=== PATIENT | male | born 1960 | race Caucasian/White ===

== ENCOUNTER 2018-11-17 09:23 | Emergency (ER) | payer BC ==
[2018-11-17] MEDS ORDERED: NS 0.9% 1000 ML** 1,000 ML IV ONE (09:53)
--- NOTE | 2018-11-17 09:54 | ED ---
Abdominal Pain/Male - HPI Summary HPI Summary: Patient is a 57-year-old male who presents emergency department for right upper quadrant abdominal pain 3 days. Patient notes pain has become more severe and constant in nature. Sharp in nature. Movement and walking makes symptoms worse. Nothing makes symptoms better. Associated symptoms of nausea without vomiting. Denies chest pain, shortness of breath, fever, urinary symptoms, vomiting or diarrhea. Patient has a past medical history of diverticulitis with peritonitis and bowel resection. Otherwise denies past medical history. Symptoms are moderate in severity. - History of Current Complaint Chief Complaint: EDAbdPain Stated Complaint: ABDOMINAL PAIN LOWER RIGHT SIDE Time Seen by Provider: 11/17/18 09:37 Hx Obtained From: Patient, Family/State Assessed Properties Director Pain Intensity: 5 - Allergies/Home Medications Allergies/Adverse Reactions: Allergies Allergy/AdvReac Type Severity Reaction Status Date / Time No Known Allergies Allergy Verified 11/17/18 09:26 PMH/Surg Hx/FS Hx/Imm Hx Previously Healthy: Yes Infectious Disease History: No Infectious Disease History: Denies: Traveled Outside the [place] in Last 30 Days - Family History Known Family History: Positive: Non-Contributory - Social History Occupation: Employed Full-time Lives: With Family Review of Systems Positive: Chills. Negative: Fever Cardiovascular: Negative Respiratory: Negative Positive: Abdominal Pain, Nausea. Negative: Vomiting Genitourinary: Negative Neurological: Negative All Other Systems Reviewed And Are Negative: Yes Physical Exam Triage Information Reviewed: Yes Vital Signs On Initial Exam: Initial Vitals Temp Pulse Resp BP Pulse Ox 98.0 F 76 14 156/99 98 11/17/18 09:25 11/17/18 09:25 11/17/18 09:25 11/17/18 09:25 11/17/18 09:25 Vital Signs Reviewed: Yes Appearance: Positive: Well-Appearing - Patient lying in bed in no acute distress. present. Skin: Positive: Warm, Dry Head/Face: Positive: Normal Head/Face Inspection Eyes: Positive: Normal, EOMI Neck: Positive: Supple Respiratory/Lung Sounds: Positive: Clear to Auscultation, Breath Sounds Present Cardiovascular: Positive: Normal, RRR Abdomen Description: Positive: Other: - Marked tenderness to the right lower quadrant with guarding. Mild diffuse abdominal tenderness. Musculoskeletal: Positive: Normal, Strength/ROM Intact Neurological: Positive: Normal, CN Intact II-III Psychiatric: Positive: Affect/Mood Appropriate Diagnostics - Vital Signs Vital Signs Temp Pulse Resp BP Pulse Ox 11/17/18 09:25 98.0 F 76 14 156/99 98 - Laboratory Result Diagrams: 11/17/18 10:28 11/17/18 10:28 Lab Statement: Any lab studies that have been ordered have been reviewed, and results considered in the medical decision making process. Abdominal Pain Male Course/Dx - Course Course Of Treatment: Pt. presenting with signficant RLQ pain. Afebrile with stable VS. Pt. declines pain medication. Given pain and surgical hx will obtain CT scan. Labs are unremarkable including normal WBC and CRP. CT read per radiology: IMPRESSION: #. The constellation of findings suggests Appendagitis epiploica at the ascending colon. Given presence of diverticula at the same level diverticulitis is also possible. #. The appendix is not visualized limiting assessment. Correlate for history of prior. appendectomy. Case discussed with kaveh Lindo, who briefly examined pt. He feels like has epiploic appendagitis. Will dc home to [facility] with surgery if pain persist. NSAIDS as directed. Will return to ER if sxs change or worsen. - Diagnoses Provider Diagnoses: Epiploic appendagitis Discharge - Sign-Out/Discharge Documenting (check all that apply): Patient Departure Patient Received Moderate/Deep Sedation with Procedure: No - Discharge Plan Condition: Good Disposition: HOME Referrals: Frankie Espinoza MD [Medical Doctor] - Additional Instructions: Follow up with Dr. Espinoza in 2-3 days if pain is not improving NSAIDS for pain as directed Return to ER for increased pain, fever, vomiting or if concerned - Billing Disposition and Condition Condition: GOOD Disposition: Home
[2018-11-17 10:33] LABS: ABS Eosinophils 0.1 10^3/ul (0-0.6); ABS Lymphocytes 1.3 10^3/ul (1.0-4.8); ABS Monocytes 0.4 10^3/ul (0-0.8); ABS Neutrophils 2.6 10^3/ul (1.5-7.7); Eosinophil % 2.8 %; Hematocrit 42 % (42-52); Hemoglobin 14.4 g/dL (14.0-18.0); Lymphocyte % 28.8 %; Mean Corpuscular HGB Conc 34 g/dL (31-36); Mean Corpuscular Hemoglobin 31 pg (27-31); Mean Corpuscular Volume 90 fL (80-94); Mean Platelet Volume 7.5 fL (7.4-10.4); Nucleated Red Blood Cells % 0.1; Platelet Count 170 10^3/uL (150-450); Red Blood Count 4.66 10^6 /uL (4.18-5.48); Red Cell Distribution Width 13 % (10-15); White Blood Count 4.5 10^3/uL (3.5-10.8)
[2018-11-17 10:50] LABS: Albumin 4.2 g/dL (3.2-5.2); Albumin/Globulin Ratio 1.4 (1-3); C Reactive Protein 4.6 mg/L (<8.01); Calcium 9.4 mg/dL (8.6-10.3); EGFR African American 99.7 (>60); EGFR Non-African American 82.4 (>60); Globulin 2.9 g/dL (2-4); Magnesium 2.2 mg/dL (1.9-2.7); Potassium 4.4 mmol/L (3.5-5.0); Total Bilirubin 0.6 mg/dL (0.2-1.0); Total Protein 7.1 g/dL (6.4-8.9)
[2018-11-17] MEDS ORDERED: Iohexol 300* (CONTRAST) 10 ML SDV IV ONE (11:47)
[2018-11-17 12:09] LABS: Urine Appearance Clear; Urine Bilirubin Negative (Negative); Urine Blood Negative (Negative); Urine Color Straw; Urine Glucose Negative (Negative); Urine Ketones Negative (Negative); Urine Nitrite Negative (Negative); Urine Protein Negative (Negative); Urine Specific Gravity 1.004 (1.010-1.030); Urine Urobilinogen Negative (Negative)
[2018-11-17 13:16] VITALS: BP 133/85
--- NOTE | 2018-11-17 20:58 | CONS ---
SURGICAL CONSULTATION REPORT: DATE OF CONSULT: 11/17/18 - EMERGENCY DEPT. REASON FOR CONSULT: Right lower quadrant abdominal pain. HISTORY OF PRESENT ILLNESS: Mr. Stbubs is a 57-year-old gentleman whose spouse is a physician. Three days ago, he began having right lower quadrant abdominal pain. This followed playing golf and also doing some strenuous cleaning (rugs). He reported taking some [id number] pain medication at that time. His pain persisted over the next couple of days and he finally presented to the emergency room on 11/17/18. At the time he presented, he was reporting provoking factors of walking and no palliating factors. He has had some nausea , no vomiting, no diarrhea. No dysuria, hematuria. He had no fevers, but did have some chills the night before. His laboratory work was normal, but CT scan demonstrated findings of epiploic appendagitis and there was no visualization of the appendix, so a surgical consultation was requested. PAST MEDICAL HISTORY: Significant for diverticulitis. Recurrent SBOs. PAST SURGICAL HISTORY: Significant for Fazal procedure and reversal of colostomy subsequently. The surgery was done 20 years ago. MEDICATIONS: None. ALLERGIES: None. SOCIAL HISTORY: He is . He is employed. He denies tobacco use. Occasionally drinks alcohol. PHYSICAL EXAM: He is 6 feet 3 inches, 200 pounds. In general, he is well developed, well nourished, lying in the emergency room stretcher, smiling, and in no acute distress. His abdomen is nondistended. There is a well-healed scar in the midline, lower abdomen and also transverse in the left lower quadrant. Abdomen is soft with mild tenderness in the right lower quadrant. No rebound or guarding. DIAGNOSTIC STUDIES/LAB DATA: WBC is 4.5 with no shift. Chemistry is notable for glucose elevated at 102. Otherwise, normal electrolytes, normal lactic acid. CRP is normal. Imaging studies include CT scan of the abdomen and pelvis with oral and IV contrast, which was reviewed by myself. Findings are consistent with appendagitis of the ascending colon. There is evidence of postoperative changes in the sigmoid colon. He has diverticula present in the right colon. Appendix was not seen. IMPRESSION: A 57-year-old male with a past medical history significant for perforated diverticulitis and history of prior small bowel obstructions, now presenting with right lower quadrant pain, evidence of right-sided diverticula with nonvisualization of the appendix and findings consistent with epiploic appendagitis. He does not appear to require any surgical intervention. PLAN/RECOMMENDATIONS: I discussed the findings with the patient and his , Dr. Gely Zavala. At present, I see no indication for him to be taken to the operating room. Although the appendix is not visualized on this study, given his normal laboratory work and the 3-day history, I have very low suspicion that this does represent acute appendicitis. However, should his symptoms worsen or should he develop fevers and chills, nausea and vomiting, then he should be reevaluated. I offered to follow up routinely in the office. However , the patient and his spouse are comfortable with following up as needed. [id number]/CPS #: [id number] MTDD
== END 2018-11-17 14:26 | disposition home or self-care (01) ==
LOC: ED 09:23
DX: K63.89 Other specified diseases of intestine (principal)
CPT/HCPCS: 36415; 74177; 80053; 81003; 83605; 83690; 83735; 85025; 86140; 96360; 96361; 99282; Q9967

== ENCOUNTER 2021-03-26 18:09 | Inpatient (IN) ==
[2021-03-26 19:14] LABS: ABS Eosinophils 0.1 10^3/ul (0-0.6); ABS Lymphocytes 1.1 10^3/ul (1.0-4.8); ABS Monocytes 0.4 10^3/ul (0-0.8); ABS Neutrophils 6.5 10^3/ul (1.5-7.7); Eosinophil % 1.4 %; Hematocrit 22 % (42-52); Hemoglobin 7.4 g/dL (14.0-18.0); Lymphocyte % 13.2 %; Mean Corpuscular HGB Conc 34 g/dL (31-36); Mean Corpuscular Hemoglobin 31 pg (27-31); Mean Corpuscular Volume 91 fL (80-94); Mean Platelet Volume 7.6 fL (7.4-10.4); Platelet Count 173 10^3/uL (150-450); Red Blood Count 2.39 10^6 /uL (4.18-5.48); Red Cell Distribution Width 13 % (10-15)
[2021-03-26] MEDS ORDERED: PEG 3000 GI LAVAGE 1 GALLON PO ONE ×2 (19:28→23:28)
[2021-03-26] MEDS ORDERED: Pantoprazole VIAL 40 MG VIAL IV ONE (19:30)
[2021-03-26 19:33] LABS: Albumin/Globulin Ratio 1.7 (1-3); C Reactive Protein 2.21 mg/L (<8.01); Calcium 7.3 mg/dL (8.6-10.3); Globulin 1.8 g/dL (2-4); Magnesium 1.7 mg/dL (1.9-2.7); Potassium 3.8 mmol/L (3.5-5.0); Total Bilirubin 0.3 mg/dL (0.2-1.0); Total Protein 4.8 g/dL (6.4-8.9); eGFR CKD-EPI 98.2 (>60)
[2021-03-26] MEDS ORDERED: Magnesium Sulfate 2 gm BAG 2 GM/50 ML BAG IVPB ONE (19:37)
[2021-03-26 21:01] LABS: ABS Lymphocytes 0.9 10^3/ul (1.0-4.8); ABS Monocytes 0.2 10^3/ul (0-0.8); ABS Neutrophils 7.2 10^3/ul (1.5-7.7); Eosinophil % 0.1 %; Hematocrit 22 % (42-52); Hemoglobin 7.6 g/dL (14.0-18.0); Lymphocyte % 10.6 %; Mean Corpuscular HGB Conc 35 g/dL (31-36); Mean Corpuscular Hemoglobin 31 pg (27-31); Mean Corpuscular Volume 90 fL (80-94); Mean Platelet Volume 7.5 fL (7.4-10.4); Platelet Count 178 10^3/uL (150-450); Red Blood Count 2.44 10^6 /uL (4.18-5.48); Red Cell Distribution Width 13 % (10-15); White Blood Count 8.3 10^3/uL (3.5-10.8)
[2021-03-27 02:16] LABS: ABS Eosinophils 0.1 10^3/ul (0-0.6); ABS Lymphocytes 2.5 10^3/ul (1.0-4.8); ABS Monocytes 0.5 10^3/ul (0-0.8); ABS Neutrophils 3.9 10^3/ul (1.5-7.7); Eosinophil % 1.4 %; Hematocrit 23 % (42-52); Hemoglobin 7.9 g/dL (14.0-18.0); Mean Corpuscular HGB Conc 34 g/dL (31-36); Mean Corpuscular Hemoglobin 31 pg (27-31); Mean Corpuscular Volume 90 fL (80-94); Mean Platelet Volume 7.5 fL (7.4-10.4); Platelet Count 212 10^3/uL (150-450); Red Blood Count 2.57 10^6 /uL (4.18-5.48); Red Cell Distribution Width 13 % (10-15)
[2021-03-27 09:04] LABS: ABS Eosinophils 0.1 10^3/ul (0-0.6); ABS Monocytes 0.2 10^3/ul (0-0.8); ABS Neutrophils 1.9 10^3/ul (1.5-7.7); Eosinophil % 2.2 %; Hematocrit 20 % (42-52); Hemoglobin 6.8 g/dL (14.0-18.0); Lymphocyte % 31.2 %; Mean Corpuscular HGB Conc 35 g/dL (31-36); Mean Corpuscular Hemoglobin 31 pg (27-31); Mean Corpuscular Volume 89 fL (80-94); Mean Platelet Volume 7.8 fL (7.4-10.4); Platelet Count 164 10^3/uL (150-450); Red Cell Distribution Width 13 % (10-15); White Blood Count 3.3 10^3/uL (3.5-10.8)
[2021-03-27 09:15] LABS: Albumin 3.2 g/dL (3.2-5.2); Albumin/Globulin Ratio 1.7 (1-3); Calcium 7.7 mg/dL (8.6-10.3); Globulin 1.9 g/dL (2-4); Magnesium 2.1 mg/dL (1.9-2.7); Potassium 3.8 mmol/L (3.5-5.0); Total Bilirubin 0.4 mg/dL (0.2-1.0); Total Protein 5.1 g/dL (6.4-8.9); eGFR CKD-EPI 97.8 (>60)
[2021-03-27] MEDS: Pantoprazole VIAL 40 MG VIAL IV SCH ×2 (09:26→22:13)
[2021-03-27 11:03] LABS: Corrected Retic Count 1.2 % (0.5-1.5); Hematocrit for Retic CNT 20 % (42-52); RBC Retic Count 2.17 10^6/uL (4.18-5.48)
[2021-03-27] MEDS ORDERED: fentaNYL 100 mcg/2 ml 50 MCG/ML VIAL ONE (12:01)
[2021-03-27] MEDS ORDERED: Midazolam 10 mg/10 ml VIAL 1 mg/ml 10 ml VIAL (10 mg) ONE (12:01)
[2021-03-27] MEDS ORDERED: Ondansetron 4 mg VIAL 2 MG/ML 2 ml VIAL IV PRN (15:46)
[2021-03-27 17:11] LABS: ABS Eosinophils 0.2 10^3/ul (0-0.6); ABS Lymphocytes 1.3 10^3/ul (1.0-4.8); ABS Monocytes 0.3 10^3/ul (0-0.8); ABS Neutrophils 1.6 10^3/ul (1.5-7.7); Eosinophil % 4.7 %; Hematocrit 20 % (42-52); Mean Corpuscular HGB Conc 35 g/dL (31-36); Mean Corpuscular Hemoglobin 31 pg (27-31); Mean Corpuscular Volume 89 fL (80-94); Mean Platelet Volume 7.3 fL (7.4-10.4); Platelet Count 147 10^3/uL (150-450); Red Blood Count 2.28 10^6 /uL (4.18-5.48); Red Cell Distribution Width 14 % (10-15); White Blood Count 3.3 10^3/uL (3.5-10.8)
[2021-03-27 22:01] LABS: ABS Eosinophils 0.2 10^3/ul (0-0.6); ABS Lymphocytes 1.5 10^3/ul (1.0-4.8); ABS Monocytes 0.3 10^3/ul (0-0.8); ABS Neutrophils 1.5 10^3/ul (1.5-7.7); Eosinophil % 5.7 %; Hematocrit 22 % (42-52); Hemoglobin 7.7 g/dL (14.0-18.0); Lymphocyte % 41.9 %; Mean Corpuscular HGB Conc 34 g/dL (31-36); Mean Corpuscular Hemoglobin 31 pg (27-31); Mean Corpuscular Volume 90 fL (80-94); Mean Platelet Volume 7.6 fL (7.4-10.4); Platelet Count 151 10^3/uL (150-450); Red Cell Distribution Width 14 % (10-15); White Blood Count 3.5 10^3/uL (3.5-10.8)
[2021-03-27] MEDS: NS 0.9% 1000 ml BAG 1,000 ML IV SCH (22:09)
[2021-03-28 02:03] LABS: Hematocrit 22 % (42-52); Hemoglobin 7.4 g/dL (14.0-18.0)
[2021-03-28 04:39] LABS: ABS Eosinophils 0.2 10^3/ul (0-0.6); ABS Lymphocytes 1.3 10^3/ul (1.0-4.8); ABS Monocytes 0.3 10^3/ul (0-0.8); ABS Neutrophils 1.8 10^3/ul (1.5-7.7); Eosinophil % 5.4 %; Hematocrit 22 % (42-52); Hemoglobin 7.7 g/dL (14.0-18.0); Lymphocyte % 36.7 %; Mean Corpuscular HGB Conc 34 g/dL (31-36); Mean Corpuscular Hemoglobin 31 pg (27-31); Mean Corpuscular Volume 89 fL (80-94); Mean Platelet Volume 7.6 fL (7.4-10.4); Nucleated Red Blood Cells % 0.1; Platelet Count 139 10^3/uL (150-450); Red Blood Count 2.51 10^6 /uL (4.18-5.48); Red Cell Distribution Width 14 % (10-15); White Blood Count 3.6 10^3/uL (3.5-10.8)
[2021-03-28 04:52] LABS: Calcium 7.7 mg/dL (8.6-10.3); Potassium 3.8 mmol/L (3.5-5.0); eGFR CKD-EPI 95.9 (>60)
[2021-03-28 05:42] LABS: TSH Ultra Thyroid Stim Horm 4.95 mcIU/mL (0.34-5.60)
[2021-03-28] MEDS: Pantoprazole VIAL 40 MG VIAL IV SCH ×2 (08:59→21:56)
[2021-03-28] MEDS: NS 0.9% 1000 ml BAG 1,000 ML IV SCH (09:00)
[2021-03-28 12:58] LABS: ABS Eosinophils 0.1 10^3/ul (0-0.6); ABS Lymphocytes 1.4 10^3/ul (1.0-4.8); ABS Monocytes 0.3 10^3/ul (0-0.8); ABS Neutrophils 2.3 10^3/ul (1.5-7.7); Eosinophil % 3.4 %; Hematocrit 26 % (42-52); Hemoglobin 8.9 g/dL (14.0-18.0); Lymphocyte % 33.9 %; Mean Corpuscular HGB Conc 34 g/dL (31-36); Mean Corpuscular Hemoglobin 31 pg (27-31); Mean Corpuscular Volume 90 fL (80-94); Mean Platelet Volume 7.6 fL (7.4-10.4); Platelet Count 192 10^3/uL (150-450); Red Blood Count 2.91 10^6 /uL (4.18-5.48); Red Cell Distribution Width 14 % (10-15); White Blood Count 4.2 10^3/uL (3.5-10.8)
[2021-03-28] MEDS ORDERED: Iron Sucrose 200 MG in NS 0.9% 100 ml BAG 100 ML IVPB ONE (14:37)
[2021-03-28 21:08] LABS: ABS Eosinophils 0.2 10^3/ul (0-0.6); ABS Lymphocytes 1.4 10^3/ul (1.0-4.8); ABS Monocytes 0.4 10^3/ul (0-0.8); ABS Neutrophils 1.5 10^3/ul (1.5-7.7); Eosinophil % 5.1 %; Hematocrit 23 % (42-52); Hemoglobin 7.7 g/dL (14.0-18.0); Lymphocyte % 41.3 %; Mean Corpuscular HGB Conc 34 g/dL (31-36); Mean Corpuscular Hemoglobin 31 pg (27-31); Mean Corpuscular Volume 90 fL (80-94); Mean Platelet Volume 7.2 fL (7.4-10.4); Platelet Count 152 10^3/uL (150-450); Red Blood Count 2.52 10^6 /uL (4.18-5.48); Red Cell Distribution Width 14 % (10-15); White Blood Count 3.4 10^3/uL (3.5-10.8)
[2021-03-29 06:33] LABS: ABS Eosinophils 0.2 10^3/ul (0-0.6); ABS Lymphocytes 1.4 10^3/ul (1.0-4.8); ABS Monocytes 0.3 10^3/ul (0-0.8); ABS Neutrophils 1.3 10^3/ul (1.5-7.7); Hematocrit 21 % (42-52); Hemoglobin 7.4 g/dL (14.0-18.0); Lymphocyte % 44.7 %; Mean Corpuscular HGB Conc 35 g/dL (31-36); Mean Corpuscular Hemoglobin 31 pg (27-31); Mean Corpuscular Volume 89 fL (80-94); Mean Platelet Volume 7.7 fL (7.4-10.4); Platelet Count 140 10^3/uL (150-450); Red Blood Count 2.39 10^6 /uL (4.18-5.48); Red Cell Distribution Width 14 % (10-15); White Blood Count 3.2 10^3/uL (3.5-10.8)
[2021-03-29 06:51] LABS: Calcium 7.8 mg/dL (8.6-10.3); Potassium 3.9 mmol/L (3.5-5.0); eGFR CKD-EPI 97.5 (>60)
[2021-03-29] MEDS ORDERED: Cholecalciferol (VIT D3) 50,000 UNIT CAP (NF) PO ONE (07:02)
[2021-03-29] MEDS: Pantoprazole VIAL 40 MG VIAL IV SCH ×2 (07:56→22:13)
[2021-03-29 13:46] LABS: Hematocrit 25 % (42-52); Hemoglobin 8.4 g/dL (14.0-18.0)
[2021-03-29 14:10] LABS: Ferritin 106.7 ng/mL (24-336)
[2021-03-29 17:09] LABS: % Iron Saturation 25 % (14 - 50); Total Iron Binding Capacity 182 mcg/dL (250 - 400); Transferrin 154 mg/dL (200 - 360)
[2021-03-29 17:29] LABS: Ferritin 75.1 ng/mL (24-336)
[2021-03-29 18:53] LABS: ABS Eosinophils 0.1 10^3/ul (0-0.6); ABS Lymphocytes 1.4 10^3/ul (1.0-4.8); ABS Monocytes 0.3 10^3/ul (0-0.8); ABS Neutrophils 1.5 10^3/ul (1.5-7.7); Eosinophil % 3.3 %; Hematocrit 26 % (42-52); Lymphocyte % 41.7 %; Mean Corpuscular HGB Conc 35 g/dL (31-36); Mean Corpuscular Hemoglobin 32 pg (27-31); Mean Corpuscular Volume 90 fL (80-94); Mean Platelet Volume 7.2 fL (7.4-10.4); Platelet Count 167 10^3/uL (150-450); Red Blood Count 2.83 10^6 /uL (4.18-5.48); Red Cell Distribution Width 13 % (10-15); White Blood Count 3.5 10^3/uL (3.5-10.8)
[2021-03-30 05:24] LABS: ABS Eosinophils 0.1 10^3/ul (0-0.6); ABS Lymphocytes 1.2 10^3/ul (1.0-4.8); ABS Monocytes 0.2 10^3/ul (0-0.8); ABS Neutrophils 1.2 10^3/ul (1.5-7.7); Eosinophil % 4.4 %; Hematocrit 25 % (42-52); Hemoglobin 8.6 g/dL (14.0-18.0); Mean Corpuscular HGB Conc 35 g/dL (31-36); Mean Corpuscular Hemoglobin 31 pg (27-31); Mean Corpuscular Volume 90 fL (80-94); Mean Platelet Volume 7.4 fL (7.4-10.4); Platelet Count 152 10^3/uL (150-450); Red Blood Count 2.76 10^6 /uL (4.18-5.48); Red Cell Distribution Width 14 % (10-15); White Blood Count 2.8 10^3/uL (3.5-10.8)
[2021-03-30 05:42] LABS: Calcium 8.2 mg/dL (8.6-10.3); Potassium 3.8 mmol/L (3.5-5.0); eGFR CKD-EPI 97.5 (>60)
[2021-03-30] MEDS: Pantoprazole VIAL 40 MG VIAL IV SCH (08:51)
[2021-03-30 08:53] LABS: Corrected Retic Count 1.4 % (0.5-1.5); Hematocrit for Retic CNT 25 % (42-52); Immature Retic Fraction 0.56; RBC Retic Count 2.79 10^6/uL (4.18-5.48)
[2021-03-30 12:05] LABS: ABS Eosinophils 0.1 10^3/ul (0-0.6); ABS Lymphocytes 1.5 10^3/ul (1.0-4.8); ABS Monocytes 0.3 10^3/ul (0-0.8); ABS Neutrophils 2.6 10^3/ul (1.5-7.7); Eosinophil % 2.2 %; Hematocrit 29 % (42-52); Hemoglobin 10.2 g/dL (14.0-18.0); Lymphocyte % 33.1 %; Mean Corpuscular HGB Conc 35 g/dL (31-36); Mean Corpuscular Hemoglobin 31 pg (27-31); Mean Corpuscular Volume 91 fL (80-94); Mean Platelet Volume 7.3 fL (7.4-10.4); Platelet Count 204 10^3/uL (150-450); Red Blood Count 3.24 10^6 /uL (4.18-5.48); Red Cell Distribution Width 14 % (10-15); White Blood Count 4.5 10^3/uL (3.5-10.8)
[2021-03-30 13:43] LABS: % Iron Saturation 71 % (14 - 50); Total Iron Binding Capacity 179 mcg/dL (250 - 400); Transferrin 152 mg/dL (200 - 360)
[2021-03-30 15:37] VITALS: BP 120/77
[2021-03-30 16:17] LABS: Hematocrit 28 % (42-52); Hemoglobin 9.5 g/dL (14.0-18.0)
== END 2021-03-30 17:30 | disposition home or self-care (01) | DRG 244 ==
LOC: ED 18:09 → EDHOLD 18:09 → SUATTDRO 22:11 → SSU 23:17 → SUATTDRO 03-27 16:00
PROVIDERS: ADMIT Student in an Organized Health Care Education/Training Program; ATTEND Hospitalist

== ENCOUNTER 2024-01-23 08:04 | Inpatient (IN) ==
[2024-01-23] MEDS: Ondansetron 4 mg VIAL 2 MG/ML 2 ml VIAL IV ONE (09:12)
[2024-01-23] MEDS: Lactated Ringers 1000 ml BAG 1,000 ML IV ONE ×2 (09:12→12:50)
[2024-01-23 09:23] LABS: ABS Lymphocytes 0.8 10^3/uL (1.0-4.8); ABS Monocytes 0.4 10^3/uL (0.0-1.1); ABS Neutrophils 11.8 10^3/uL (1.5-7.6); ABS Nucleated RBC 0.04 10^3/ul; Eosinophil % 0.1 %; Hematocrit 46.4 % (38-53); Hemoglobin 15.9 g/dL (13.2-16.3); Lymphocyte % 6.5 %; Mean Corpuscular Hemoglobin 31.1 pg (27-33); Mean Corpuscular Hgb Conc 34.3 g/dL (31-36); Mean Corpuscular Volume 90.8 fL (80-97); Mean Platelet Volume 7.8 fL (7.5-11.2); Nucleated Red Blood Cells % 0.3 %/100WBC (0.0-0.8); Platelet Count 247 10^3/uL (150-450); Red Blood Count 5.11 10^6/uL (4.06-5.63); Red Cell Distribution Width 13.3 % (12-17); White Blood Count 13.1 10^3/uL (3.6-10.2)
[2024-01-23 10:17] LABS: ALT 20 U/L (7-52); Albumin 4.7 g/dL (3.2-5.2); Albumin/Globulin Ratio 1.6 (1-3); Alkaline Phosphatase 72 U/L (35-149); Anion Gap 13 mmol/L (2-16); Blood Urea Nitrogen 16 mg/dL (6-24); C Reactive Protein 1.33 mg/L (<8.01); CO2 Carbon Dioxide 25 mmol/L (22-32); Calcium 10.4 mg/dL (8.6-10.3); Chloride 98 mmol/L (101-111); Creatinine, Serum 1.03 mg/dL (0.67-1.17); Globulin 2.9 g/dL (2-4); Glucose 128 mg/dL (70-100); Lipase 19 U/L (11.0-82.0); Sodium 136 mmol/L (135-145); Total Bilirubin 0.7 mg/dL (0.2-1.0); Total Protein 7.6 g/dL (6.4-8.9); eGFR CKD-EPI 81.1 (>60)
[2024-01-23] MEDS: Iohexol 300 (CONTRAST) 10 ML SDV IV ONE (11:27)
[2024-01-23] MEDS: Acetaminophen IV 1 GM/100ML 1,000 MG/100 ML BAG IV ONE (12:48)
[2024-01-23] MEDS: Diatrizoate Meg/Sod(CONTRAST) 30 ML ORAL.SOLN PO ONE (14:12)
[2024-01-23] MEDS: Ondansetron 4 mg VIAL 2 MG/ML 2 ml VIAL IV PRN (15:41)
[2024-01-23] MEDS: Lactated Ringers 1000 ml BAG 1,000 ML IV SCH (15:41)
[2024-01-23] MEDS ORDERED: Metoclopramide 5 MG/ML VIAL (10 mg) IV PRN (16:22)
[2024-01-23] MEDS: Acetaminophen IV 1 GM/100ML 1,000 MG/100 ML BAG IV PRN (19:51)
[2024-01-23 21:07] LABS: Potassium Redraw 4.4 mmol/L (3.5-5.0)
[2024-01-24] MEDS: Lactated Ringers 1000 ml BAG 1,000 ML IV ONE ×3 (02:06→11:06)
[2024-01-24 07:53] LABS: ABS Lymphocytes 1.9 10^3/uL (1.0-4.8); ABS Neutrophils 7.8 10^3/uL (1.5-7.6); Eosinophil % 0.4 %; Hematocrit 42.9 % (38-53); Hemoglobin 14.9 g/dL (13.2-16.3); Lymphocyte % 18.1 %; Mean Corpuscular Hemoglobin 31.4 pg (27-33); Mean Corpuscular Hgb Conc 34.6 g/dL (31-36); Mean Corpuscular Volume 90.8 fL (80-97); Mean Platelet Volume 7.7 fL (7.5-11.2); Platelet Count 244 10^3/uL (150-450); Red Blood Count 4.73 10^6/uL (4.06-5.63); White Blood Count 10.8 10^3/uL (3.6-10.2)
[2024-01-24 08:38] LABS: Calcium 9.8 mg/dL (8.6-10.3); Creatinine, Serum 1.03 mg/dL (0.67-1.17); Magnesium 1.9 mg/dL (1.9-2.7); Potassium 4.5 mmol/L (3.5-5.0); eGFR CKD-EPI 81.1 (>60)
[2024-01-24] MEDS: Lactated Ringers 1000 ml BAG 1,000 ML IV SCH (12:09)
[2024-01-25 05:44] LABS: ABS Eosinophils 0.1 10^3/uL (0.0-0.5); ABS Lymphocytes 1.6 10^3/uL (1.0-4.8); ABS Monocytes 0.8 10^3/uL (0.0-1.1); ABS Neutrophils 6.2 10^3/uL (1.5-7.6); Eosinophil % 0.6 %; Hematocrit 37.9 % (38-53); Hemoglobin 12.9 g/dL (13.2-16.3); Lymphocyte % 18.7 %; Mean Corpuscular Hgb Conc 33.9 g/dL (31-36); Mean Corpuscular Volume 91.2 fL (80-97); Mean Platelet Volume 7.9 fL (7.5-11.2); Platelet Count 197 10^3/uL (150-450); Red Blood Count 4.16 10^6/uL (4.06-5.63); White Blood Count 8.7 10^3/uL (3.6-10.2)
[2024-01-25 07:21] LABS: Creatinine, Serum 0.92 mg/dL (0.67-1.17); Magnesium 1.8 mg/dL (1.9-2.7); eGFR CKD-EPI 92.9 (>60)
[2024-01-25] MEDS: Magnesium Sulfate 2 gm BAG 2 GM/50 ML BAG IVPB ONE (08:37)
[2024-01-25] MEDS: Phenol 1.4% Throat Spray BTL MT PRN (18:02)
[2024-01-26 05:36] LABS: ABS Eosinophils 0.1 10^3/uL (0.0-0.5); ABS Lymphocytes 1.5 10^3/uL (1.0-4.8); ABS Monocytes 0.7 10^3/uL (0.0-1.1); ABS Neutrophils 5.3 10^3/uL (1.5-7.6); Eosinophil % 1.8 %; Hematocrit 34.6 % (38-53); Lymphocyte % 19.4 %; Mean Corpuscular Hemoglobin 31.7 pg (27-33); Mean Corpuscular Hgb Conc 34.8 g/dL (31-36); Mean Corpuscular Volume 91.1 fL (80-97); Mean Platelet Volume 7.5 fL (7.5-11.2); Platelet Count 166 10^3/uL (150-450); Red Cell Distribution Width 13.1 % (12-17); White Blood Count 7.6 10^3/uL (3.6-10.2)
[2024-01-26 06:14] LABS: Creatinine, Serum 0.74 mg/dL (0.67-1.17); Magnesium 1.9 mg/dL (1.9-2.7); Potassium 3.9 mmol/L (3.5-5.0); eGFR CKD-EPI 101.2 (>60)
[2024-01-26] MEDS: Pantoprazole VIAL 40 MG VIAL IV SCH (12:27)
[2024-01-26] MEDS: Diatrizoate Meg/Sod(CONTRAST) 30 ML ORAL.SOLN PO ONE (13:18)
[2024-01-26] MEDS ORDERED: Lorazepam PYXIS KEY PRN (13:43)
[2024-01-26] MEDS: LORazepam 2 mg VIAL 1 ml IV PUSH PRN (22:33)
[2024-01-27 10:15] LABS: Calcium 8.4 mg/dL (8.6-10.3); Creatinine, Serum 0.75 mg/dL (0.67-1.17); Potassium 3.7 mmol/L (3.5-5.0); eGFR CKD-EPI 100.8 (>60)
[2024-01-27] MEDS ORDERED: ceFOXitin 2 GM IVPREMIX 2 GM/50 ML BAG ONE (10:32)
[2024-01-27] MEDS: KCL 10 MEQ/50 ML IVPREMIX 10 MEQ/50 ML BAG IV SCH (11:41)
[2024-01-27] MEDS ORDERED: Lidocaine 2% PF 5 ML VIAL ONE ×2 (13:38→13:41)
[2024-01-27] MEDS ORDERED: Propofol 10 MG/ML 20 ML BTL ONE (13:38)
[2024-01-27] MEDS ORDERED: fentaNYL 100 mcg/2 ml 50 MCG/ML VIAL ONE ×2 (13:38→19:40)
[2024-01-27] MEDS ORDERED: Midazolam 2 mg/2 ml VIAL 1 mg/ml 2 ml VIAL (2 mg) ONE (13:38)
[2024-01-27] MEDS ORDERED: Rocuronium 50 mg VIAL 10 mg/ml 5 ml VIAL (50 mg) ONE ×3 (13:38→16:26)
[2024-01-27] MEDS ORDERED: Sevoflurane BOTTLE ONE (13:40)
[2024-01-27] MEDS ORDERED: Bupivacaine 0.25% w/EPI 10 ML SDV ONE (13:44)
[2024-01-27] MEDS ORDERED: Dexamethasone IV 4 MG/ML VIAL 1 ml VIAL ONE (15:26)
[2024-01-27] MEDS ORDERED: Ondansetron 4 mg VIAL 2 MG/ML 2 ml VIAL ONE (15:26)
[2024-01-27] MEDS ORDERED: HYDROmorphone 0.5 MG/0.5 ML SYRINGE ONE (15:27)
[2024-01-27] MEDS ORDERED: Labetalol IV 5 MG/ML 20 ml VIAL ONE ×2 (16:12→19:39)
[2024-01-27] MEDS ORDERED: hydrALAZINE 20 mg/ml 1 ML Vial IV ONE (16:13)
[2024-01-27] MEDS ORDERED: Acetaminophen IV 1 GM/100ML 1,000 MG/100 ML BAG IV ONE (16:34)
[2024-01-27] MEDS ORDERED: Naloxone 0.4 mg VIAL 0.4 mg/ml 1 ml VIAL IV PRN (19:35)
[2024-01-27] MEDS ORDERED: Metoclopramide 5 MG/ML VIAL (10 mg) IV PRN (19:35)
[2024-01-27] MEDS ORDERED: Ondansetron 4 mg VIAL 2 MG/ML 2 ml VIAL IV PRN (19:35)
[2024-01-27] MEDS: fentaNYL 100 mcg/2 ml 50 MCG/ML VIAL IV PRN (19:43)
[2024-01-27] MEDS: Labetalol IV 5 MG/ML 20 ml VIAL IV PUSH ONE (19:46)
[2024-01-27] MEDS ORDERED: NS 0.45% 1000 ml BAG 1,000 ML IV SCH (20:00)
[2024-01-27] MEDS ORDERED: HYDROmorphone 1 MG/1 ML SYRINGE ONE (20:35)
[2024-01-27] MEDS: HYDROmorphone 0.5 MG/0.5 ML SYRINGE IV SLOW PU PRN (20:37)
[2024-01-27] MEDS: Buffered Lidocaine 1% SYRIN 1 ml INTRADERM ONE (21:54)
[2024-01-27] MEDS: Scopolamine 1 mg/72hr PATCH TRANSDERM ONE (21:55)
[2024-01-27] MEDS: Lactated Ringers 1000 ml BAG 1,000 ML IV SCH ×2 (22:00→22:01)
[2024-01-27] MEDS: Acetaminophen IV 1 GM/100ML 1,000 MG/100 ML BAG IV ONE (22:07)
[2024-01-28 05:49] LABS: ABS Lymphocytes 0.7 10^3/uL (1.0-4.8); ABS Monocytes 0.8 10^3/uL (0.0-1.1); ABS Nucleated RBC 0.01 10^3/ul; Hematocrit 38.9 % (38-53); Hemoglobin 13.5 g/dL (13.2-16.3); Lymphocyte % 8.6 %; Mean Corpuscular Hemoglobin 31.4 pg (27-33); Mean Corpuscular Hgb Conc 34.8 g/dL (31-36); Mean Corpuscular Volume 90.4 fL (80-97); Mean Platelet Volume 8.1 fL (7.5-11.2); Nucleated Red Blood Cells % 0.1 %/100WBC (0.0-0.8); Platelet Count 196 10^3/uL (150-450); Red Blood Count 4.31 10^6/uL (4.06-5.63); Red Cell Distribution Width 12.8 % (12-17); White Blood Count 8.6 10^3/uL (3.6-10.2)
[2024-01-28 06:20] LABS: Calcium 7.5 mg/dL (8.6-10.3); Creatinine, Serum 0.78 mg/dL (0.67-1.17); Potassium 4.1 mmol/L (3.5-5.0); eGFR CKD-EPI 99.6 (>60)
[2024-01-28] MEDS: Lactated Ringers 1000 ml BAG 1,000 ML IV SCH (09:56)
[2024-01-28] MEDS: NS 0.9% 1000 ml BAG 1,000 ML IV ONE (15:17)
[2024-01-28] MEDS: Lidocaine 2% JELLY 6 ML Topical TOPICAL ONE (15:28)
[2024-01-28] MEDS: Enoxaparin 40 MG/0.4 ML SYR SUBCUT SCH (20:19)
[2024-01-29] MEDS: D5W 1/2 NS 1000 ml BAG 1,000 ML IV SCH (11:16)
[2024-01-30 07:10] LABS: ABS Eosinophils 0.2 10^3/uL (0.0-0.5); ABS Lymphocytes 1.3 10^3/uL (1.0-4.8); ABS Monocytes 0.6 10^3/uL (0.0-1.1); ABS Neutrophils 4.9 10^3/uL (1.5-7.6); Eosinophil % 2.3 %; Hematocrit 31.6 % (38-53); Mean Corpuscular Hemoglobin 31.9 pg (27-33); Mean Corpuscular Hgb Conc 34.9 g/dL (31-36); Mean Corpuscular Volume 91.3 fL (80-97); Mean Platelet Volume 8.2 fL (7.5-11.2); Platelet Count 179 10^3/uL (150-450); Red Blood Count 3.46 10^6/uL (4.06-5.63)
[2024-01-30 07:22] LABS: Calcium 7.4 mg/dL (8.6-10.3); Creatinine, Serum 0.65 mg/dL (0.67-1.17); Magnesium 1.9 mg/dL (1.9-2.7); Potassium 3.8 mmol/L (3.5-5.0); eGFR CKD-EPI 105.2 (>60)
[2024-01-30] MEDS: Acetaminophen IV 1 GM/100ML 1,000 MG/100 ML BAG IV SCH ×2 (10:22→12:23)
[2024-01-30] MEDS: LORazepam 2 mg VIAL 1 ml IV PUSH PRN (22:05)
[2024-01-31] MEDS ORDERED: LIDOCAINE 4% TOPICAL PRN (11:51)
[2024-02-01] MEDS ORDERED: LORazepam 2 mg VIAL 1 ml IV PUSH PRN (02:28)
[2024-02-01 08:57] LABS: Calcium 7.7 mg/dL (8.6-10.3); Creatinine, Serum 0.58 mg/dL (0.67-1.17); Potassium 3.2 mmol/L (3.5-5.0); eGFR CKD-EPI 108.9 (>60)
[2024-02-01 08:59] LABS: Albumin 2.7 g/dL (3.2-5.2); Albumin/Globulin Ratio 1.4 (1-3); Calcium 7.5 mg/dL (8.6-10.3); Creatinine, Serum 0.58 mg/dL (0.67-1.17); Globulin 1.9 g/dL (2-4); Magnesium 1.8 mg/dL (1.9-2.7); Phosphorus 3.2 mg/dL (2.5-5.0); Potassium 3.1 mmol/L (3.5-5.0); Total Bilirubin 0.6 mg/dL (0.2-1.0); Total Protein 4.6 g/dL (6.4-8.9); eGFR CKD-EPI 108.9 (>60)
[2024-02-01] MEDS: D5W 1/2 NS 1000 ml BAG 1,000 ML IV SCH (10:24)
[2024-02-01] MEDS: Magnesium Sulfate 2 gm BAG 2 GM/50 ML BAG IVPB ONE (10:53)
[2024-02-01] MEDS: KCL 20 MEQ/100 ML IVPREMIX 20 MEQ/100 ML BAG IV SCH (13:21)
[2024-02-01] MEDS: LORazepam 2 mg VIAL 1 ml IV PUSH PRN (21:08)
[2024-02-03] MEDS: Metoclopramide 5 MG/ML VIAL (10 mg) IV PRN (16:54)
[2024-02-03] MEDS: Metoclopramide 5 MG/ML VIAL (10 mg) ONE (17:07)
[2024-02-04] MEDS: Acetaminophen IV 1 GM/100ML 1,000 MG/100 ML BAG IV SCH (04:20)
[2024-02-04 07:05] LABS: Calcium 7.8 mg/dL (8.6-10.3); Creatinine, Serum 0.68 mg/dL (0.67-1.17); Potassium 3.4 mmol/L (3.5-5.0); eGFR CKD-EPI 103.8 (>60)
[2024-02-04] MEDS: KCL 20 MEQ/100 ML IVPREMIX 20 MEQ/100 ML BAG IV SCH (11:50)
[2024-02-04] MEDS: Iohexol 300 (CONTRAST) 10 ML SDV IV ONE (14:14)
[2024-02-04] MEDS: Acetaminophen IV 1 GM/100ML 1,000 MG/100 ML BAG IV PRN (14:17)
[2024-02-04] MEDS: Iohexol 350 (CONTRAST) 500 ML MDV IV ONE (14:53)
[2024-02-04] MEDS: D5W 1/2 NS 1000 ml BAG 1,000 ML IV SCH ×2 (17:42→20:28)
[2024-02-04] MEDS: PPN (PERIPHERAL) 24 HR with D10W 1000 ml BAG 1,000 ML, Amino Acid Infusion 10% 850 ML, ... IV SCH (17:43)
[2024-02-05 06:37] LABS: ABS Eosinophils 0.1 10^3/uL (0.0-0.5); ABS Lymphocytes 1.2 10^3/uL (1.0-4.8); ABS Monocytes 0.5 10^3/uL (0.0-1.1); ABS Neutrophils 3.6 10^3/uL (1.5-7.6); Eosinophil % 2.6 %; Hematocrit 29.5 % (38-53); Hemoglobin 10.4 g/dL (13.2-16.3); Lymphocyte % 21.7 %; Mean Corpuscular Hemoglobin 31.9 pg (27-33); Mean Corpuscular Hgb Conc 35.2 g/dL (31-36); Mean Corpuscular Volume 90.6 fL (80-97); Mean Platelet Volume 7.5 fL (7.5-11.2); Platelet Count 314 10^3/uL (150-450); Red Blood Count 3.25 10^6/uL (4.06-5.63); Red Cell Distribution Width 13.1 % (12-17); White Blood Count 5.4 10^3/uL (3.6-10.2)
[2024-02-05 06:54] LABS: Albumin 2.9 g/dL (3.2-5.2); Albumin/Globulin Ratio 1.3 (1-3); Creatinine, Serum 0.67 mg/dL (0.67-1.17); Globulin 2.2 g/dL (2-4); Magnesium 1.8 mg/dL (1.9-2.7); Phosphorus 3.3 mg/dL (2.5-5.0); Potassium 3.5 mmol/L (3.5-5.0); Total Bilirubin 0.5 mg/dL (0.2-1.0); Total Protein 5.1 g/dL (6.4-8.9); eGFR CKD-EPI 104.3 (>60)
[2024-02-05] MEDS: TPN 24 HR with Dextrose 50% Water 500 ML, Amino Acid Infusion 10% 1,000 ML, Lipid Emuls... CENT\\PICC SCH (11:42)
[2024-02-05] MEDS: D5W 1/2 NS KCl 20 meq 1000 ml 1,000 ML IV SCH ×2 (15:41→15:44)
[2024-02-06 05:53] LABS: Albumin 3.1 g/dL (3.2-5.2); Albumin/Globulin Ratio 1.3 (1-3); Calcium 8.2 mg/dL (8.6-10.3); Creatinine, Serum 0.67 mg/dL (0.67-1.17); Globulin 2.4 g/dL (2-4); Magnesium 1.9 mg/dL (1.9-2.7); Phosphorus 3.7 mg/dL (2.5-5.0); Potassium 3.6 mmol/L (3.5-5.0); Total Bilirubin 0.5 mg/dL (0.2-1.0); Total Protein 5.5 g/dL (6.4-8.9); eGFR CKD-EPI 104.3 (>60)
[2024-02-06] MEDS: Prochlorperazine 5 mg/ml 2 ml VIAL (10 mg) IV PRN (10:52)
[2024-02-06] MEDS ORDERED: Zosyn per Pharmacy NOTE FOLLOW UP SCH (17:00)
[2024-02-06] MEDS: Piperacillin/Tazobac 3.375 BAG 3.375 GM/100 ML BAG IV ONE (18:10)
[2024-02-06] MEDS: ZOSYN 3.375 GM Q8H per EXTENDED INFUSION IV SCH (21:57)
[2024-02-07 05:55] LABS: ABS Eosinophils 0.1 10^3/uL (0.0-0.5); ABS Lymphocytes 1.3 10^3/uL (1.0-4.8); ABS Monocytes 0.5 10^3/uL (0.0-1.1); ABS Neutrophils 4.5 10^3/uL (1.5-7.6); ABS Nucleated RBC 0.01 10^3/ul; Eosinophil % 1.8 %; Hematocrit 30.5 % (38-53); Hemoglobin 10.5 g/dL (13.2-16.3); Lymphocyte % 20.1 %; Mean Corpuscular Hemoglobin 31.1 pg (27-33); Mean Corpuscular Hgb Conc 34.5 g/dL (31-36); Mean Platelet Volume 7.5 fL (7.5-11.2); Nucleated Red Blood Cells % 0.1 %/100WBC (0.0-0.8); Platelet Count 413 10^3/uL (150-450); Red Blood Count 3.39 10^6/uL (4.06-5.63); Red Cell Distribution Width 13.1 % (12-17); White Blood Count 6.5 10^3/uL (3.6-10.2)
[2024-02-07 06:23] LABS: Albumin/Globulin Ratio 1.3 (1-3); Calcium 8.3 mg/dL (8.6-10.3); Creatinine, Serum 0.73 mg/dL (0.67-1.17); Globulin 2.3 g/dL (2-4); Phosphorus 3.8 mg/dL (2.5-5.0); Potassium 3.7 mmol/L (3.5-5.0); Total Bilirubin 0.4 mg/dL (0.2-1.0); Total Protein 5.3 g/dL (6.4-8.9); eGFR CKD-EPI 101.6 (>60)
[2024-02-07] MEDS: TPN 24 HR with Sodium Chloride CONC. 4 MEQ/ML 100 MEQ, Potassium Chloride TPN 50 MEQ, C... CENT\\PICC SCH (17:56)
[2024-02-08 08:03] LABS: Albumin/Globulin Ratio 1.3 (1-3); Calcium 8.2 mg/dL (8.6-10.3); Creatinine, Serum 0.68 mg/dL (0.67-1.17); Globulin 2.4 g/dL (2-4); Magnesium 1.9 mg/dL (1.9-2.7); Phosphorus 3.7 mg/dL (2.5-5.0); Potassium 3.9 mmol/L (3.5-5.0); Total Bilirubin 0.5 mg/dL (0.2-1.0); Total Protein 5.4 g/dL (6.4-8.9); eGFR CKD-EPI 103.8 (>60)
[2024-02-08] MEDS: Metoprolol Tartrate 5 mg VIAL 5 ml VIAL (1 mg/ml) IV SCH (13:34)
[2024-02-10 06:58] LABS: ABS Eosinophils 0.1 10^3/uL (0.0-0.5); ABS Lymphocytes 1.2 10^3/uL (1.0-4.8); ABS Monocytes 0.6 10^3/uL (0.0-1.1); ABS Neutrophils 5.6 10^3/uL (1.5-7.6); Eosinophil % 1.1 %; Hematocrit 28.9 % (38-53); Hemoglobin 10.2 g/dL (13.2-16.3); Lymphocyte % 15.3 %; Mean Corpuscular Hemoglobin 32.1 pg (27-33); Mean Corpuscular Hgb Conc 35.5 g/dL (31-36); Mean Corpuscular Volume 90.5 fL (80-97); Mean Platelet Volume 7.3 fL (7.5-11.2); Platelet Count 426 10^3/uL (150-450); Red Blood Count 3.19 10^6/uL (4.06-5.63); Red Cell Distribution Width 13.4 % (12-17); White Blood Count 7.5 10^3/uL (3.6-10.2)
[2024-02-10 07:48] LABS: Calcium 8.1 mg/dL (8.6-10.3); Creatinine, Serum 0.65 mg/dL (0.67-1.17); Magnesium 1.9 mg/dL (1.9-2.7); Phosphorus 2.8 mg/dL (2.5-5.0); Potassium 4.5 mmol/L (3.5-5.0); eGFR CKD-EPI 105.2 (>60)
[2024-02-10 21:32] LABS: Hematocrit 29.6 % (38-53); Hemoglobin 9.7 g/dL (13.2-16.3)
[2024-02-11] MEDS: Pantoprazole VIAL 40 MG VIAL IV SCH (00:39)
[2024-02-11 07:03] LABS: ABS Eosinophils 0.1 10^3/uL (0.0-0.5); ABS Lymphocytes 1.2 10^3/uL (1.0-4.8); ABS Monocytes 0.5 10^3/uL (0.0-1.1); ABS Neutrophils 2.4 10^3/uL (1.5-7.6); Eosinophil % 2.6 %; Hemoglobin 9.4 g/dL (13.2-16.3); Lymphocyte % 28.3 %; Mean Corpuscular Hemoglobin 33.2 pg (27-33); Mean Corpuscular Hgb Conc 32.5 g/dL (31-36); Mean Corpuscular Volume 102.1 fL (80-97); Mean Platelet Volume 7.8 fL (7.5-11.2); Nucleated Red Blood Cells % 0.1 %/100WBC (0.0-0.8); Platelet Count 328 10^3/uL (150-450); Red Blood Count 2.84 10^6/uL (4.06-5.63); Red Cell Distribution Width 15.3 % (12-17); White Blood Count 4.3 10^3/uL (3.6-10.2)
[2024-02-11] MEDS ORDERED: Morphine 2 MG/ML SYRINGE IV PRN (08:44)
[2024-02-11 12:14] LABS: Hematocrit 31.2 % (38-53); Hemoglobin 10.7 g/dL (13.2-16.3)
[2024-02-11 18:42] LABS: Hematocrit 29.4 % (38-53); Hemoglobin 10.2 g/dL (13.2-16.3)
[2024-02-12 06:50] LABS: Hematocrit 27.3 % (38-53); Hemoglobin 9.5 g/dL (13.2-16.3)
[2024-02-12 07:03] LABS: Albumin 3.1 g/dL (3.2-5.2); Albumin/Globulin Ratio 1.3 (1-3); Calcium 8.4 mg/dL (8.6-10.3); Creatinine, Serum 0.8 mg/dL (0.67-1.17); Globulin 2.4 g/dL (2-4); Magnesium 2.1 mg/dL (1.9-2.7); Potassium 4.4 mmol/L (3.5-5.0); Total Bilirubin 0.5 mg/dL (0.2-1.0); Total Protein 5.5 g/dL (6.4-8.9); eGFR CKD-EPI 98.8 (>60)
[2024-02-12 18:05] LABS: Hematocrit 29.1 % (38-53)
[2024-02-14 17:33] LABS: Hematocrit 26.3 % (38-53); Hemoglobin 8.9 g/dL (13.2-16.3)
[2024-02-14] MEDS: NS 0.9% 500 ml BAG 500 ML IV ONE (18:22)
[2024-02-14] MEDS ORDERED: Naloxone 0.4 mg VIAL 0.4 mg/ml 1 ml VIAL IV PUSH PRN (19:17)
[2024-02-14 19:25] LABS: INR 1.19 (0.85-1.14)
[2024-02-14] MEDS: HYDROmorphone 0.5 MG/0.5 ML SYRINGE IV SLOW PU PRN (20:05)
[2024-02-14] MEDS: NS 0.9% 1000 ml BAG 1,000 ML IV ONE ×2 (20:20→23:30)
[2024-02-14 22:51] LABS: Hematocrit 21.5 % (38-53); Hemoglobin 6.9 g/dL (13.2-16.3)
[2024-02-15] MEDS: Pantoprazole 80 mg in NS BAG 80 MG/250 ML BAG IV SCH (01:53)
[2024-02-15] MEDS: Acetaminophen IV 1 GM/100ML 1,000 MG/100 ML BAG IV PRN (02:51)
[2024-02-15 06:10] LABS: Albumin 2.3 g/dL (3.2-5.2); Albumin/Globulin Ratio 1.4 (1-3); Creatinine, Serum 0.74 mg/dL (0.67-1.17); Globulin 1.7 g/dL (2-4); Potassium 5.1 mmol/L (3.5-5.0); Total Bilirubin 0.9 mg/dL (0.2-1.0); eGFR CKD-EPI 101.2 (>60)
[2024-02-15 06:17] LABS: ABS Lymphocytes 1.8 10^3/uL (1.0-4.8); ABS Monocytes 0.7 10^3/uL (0.0-1.1); ABS Neutrophils 5.6 10^3/uL (1.5-7.6); ABS Nucleated RBC 0.01 10^3/ul; Eosinophil % 0.2 %; Hematocrit 18.1 % (38-53); Hemoglobin 6.3 g/dL (13.2-16.3); Mean Corpuscular Hemoglobin 30.9 pg (27-33); Mean Corpuscular Hgb Conc 34.7 g/dL (31-36); Mean Corpuscular Volume 89.1 fL (80-97); Nucleated Red Blood Cells % 0.1 %/100WBC (0.0-0.8); Platelet Count 240 10^3/uL (150-450); Red Blood Count 2.03 10^6/uL (4.06-5.63); Red Cell Distribution Width 13.9 % (12-17)
[2024-02-15] MEDS: CALCIUM GLUCONATE 1GM/50ML NS 1 GM/50 ML BAG IV SCH (07:22)
[2024-02-15 08:15] LABS: Activated Partial Thrombo Time 23.4 seconds (26.0-38.0); INR 1.23 (0.85-1.14)
[2024-02-15 10:04] LABS: Magnesium 1.6 mg/dL (1.9-2.7); Phosphorus 3.4 mg/dL (2.5-5.0)
[2024-02-15] MEDS ORDERED: Midazolam 10 mg/10 ml VIAL 1 mg/ml 10 ml VIAL (10 mg) ONE (10:09)
[2024-02-15] MEDS ORDERED: fentaNYL 100 mcg/2 ml 50 MCG/ML VIAL ONE (10:09)
[2024-02-15] MEDS: CALCIUM GLUCONATE 1GM/50ML NS 1 GM/50 ML BAG IV ONE (11:57)
[2024-02-15] MEDS: Iohexol 350 (CONTRAST) 500 ML MDV IV ONE (13:55)
[2024-02-15 15:50] LABS: Hematocrit 22.5 % (38-53); Hemoglobin 7.7 g/dL (13.2-16.3); Mean Corpuscular Hemoglobin 28.8 pg (27-33); Mean Corpuscular Hgb Conc 34.1 g/dL (31-36); Mean Corpuscular Volume 84.3 fL (80-97); Mean Platelet Volume 8.1 fL (7.5-11.2); Platelet Count 210 10^3/uL (150-450); Red Blood Count 2.68 10^6/uL (4.06-5.63); Red Cell Distribution Width 17.1 % (12-17)
[2024-02-15 16:04] LABS: INR 1.12 (0.85-1.14)
[2024-02-15 16:28] LABS: Calcium 7.8 mg/dL (8.6-10.3); Creatinine, Serum 0.71 mg/dL (0.67-1.17); Potassium 4.2 mmol/L (3.5-5.0); eGFR CKD-EPI 102.5 (>60)
[2024-02-15 16:32] LABS: Platelet Count 210 10^3/ul (150-450)
[2024-02-15 16:34] LABS: Schistocytes ABSENT
[2024-02-15] MEDS: CALCIUM GLUCONATE TPN CENT\\PICC SCH (17:00)
[2024-02-15] MEDS: [UNRECOGNIZED DRUG - OTHER] CENT\\PICC SCH (17:00)
[2024-02-15] MEDS: SODIUM CHLORIDE CENT\\PICC SCH (17:00)
[2024-02-15] MEDS: TPN CENT\\PICC SCH (17:00)
[2024-02-15] MEDS: PEG 3000 GI LAVAGE 1 GALLON PO ONE (18:03)
[2024-02-15] MEDS: Bumetanide IV 0.25 MG/ML 4 ml VIAL (1 mg) IV SLOW PU ONE (19:47)
[2024-02-15 22:24] LABS: Hematocrit 21.7 % (38-53); Hemoglobin 7.4 g/dL (13.2-16.3); Mean Corpuscular Hemoglobin 28.9 pg (27-33); Mean Corpuscular Hgb Conc 34.2 g/dL (31-36); Mean Corpuscular Volume 84.6 fL (80-97); Mean Platelet Volume 8.3 fL (7.5-11.2); Platelet Count 221 10^3/uL (150-450); Red Blood Count 2.57 10^6/uL (4.06-5.63); White Blood Count 9.4 10^3/uL (3.6-10.2)
[2024-02-16] MEDS ORDERED: PEG 3000 GI LAVAGE 1 GALLON PO ONE (03:00)
[2024-02-16 05:09] LABS: Calcium 7.2 mg/dL (8.6-10.3); Creatinine, Serum 0.77 mg/dL (0.67-1.17)
[2024-02-16 06:00] LABS: ABS Eosinophils 0.1 10^3/uL (0.0-0.5); ABS Lymphocytes 1.8 10^3/uL (1.0-4.8); ABS Monocytes 0.9 10^3/uL (0.0-1.1); ABS Neutrophils 5.3 10^3/uL (1.5-7.6); ABS Nucleated RBC 0.01 10^3/ul; Eosinophil % 0.7 %; Hematocrit 15.5 % (38-53); Hemoglobin 5.4 g/dL (13.2-16.3); Lymphocyte % 22.5 %; Mean Corpuscular Hemoglobin 29.1 pg (27-33); Mean Corpuscular Hgb Conc 34.6 g/dL (31-36); Mean Corpuscular Volume 84.1 fL (80-97); Mean Platelet Volume 8.9 fL (7.5-11.2); Nucleated Red Blood Cells % 0.1 %/100WBC (0.0-0.8); Platelet Count 179 10^3/uL (150-450); Red Blood Count 1.84 10^6/uL (4.06-5.63); Red Cell Distribution Width 17.9 % (12-17); White Blood Count 8.1 10^3/uL (3.6-10.2)
[2024-02-16] MEDS: CALCIUM GLUCONATE 1GM/50ML NS 1 GM/50 ML BAG IV SCH (06:44)
[2024-02-16 06:48] LABS: Hematocrit 16.2 % (38-53); Hemoglobin 5.5 g/dL (13.2-16.3)
[2024-02-16] MEDS: Pantoprazole VIAL 40 MG VIAL IV SCH (12:34)
[2024-02-16 15:05] LABS: Mean Corpuscular Hemoglobin 29.2 pg (27-33); Mean Corpuscular Hgb Conc 34.9 g/dL (31-36); Mean Corpuscular Volume 83.8 fL (80-97); Mean Platelet Volume 8.3 fL (7.5-11.2); Platelet Count 166 10^3/uL (150-450); Red Blood Count 2.39 10^6/uL (4.06-5.63); Red Cell Distribution Width 15.9 % (12-17); White Blood Count 8.9 10^3/uL (3.6-10.2)
[2024-02-16 15:06] LABS: Platelet Count 161 10^3/ul (150-450)
[2024-02-16 15:10] LABS: Activated Partial Thrombo Time 23.5 seconds (26.0-38.0); INR 1.14 (0.85-1.14)
[2024-02-16 15:44] LABS: Schistocytes ABSENT
[2024-02-16] MEDS: [UNRECOGNIZED DRUG - OTHER] CENT\\PICC SCH (17:54)
[2024-02-16] MEDS: CALCIUM GLUCONATE TPN CENT\\PICC SCH (17:54)
[2024-02-16] MEDS: TPN CENT\\PICC SCH (17:54)
[2024-02-16] MEDS: SODIUM CHLORIDE CENT\\PICC SCH (17:54)
[2024-02-16 23:59] LABS: Hematocrit 20.7 % (38-53); Hemoglobin 7.1 g/dL (13.2-16.3); Mean Corpuscular Hemoglobin 29.2 pg (27-33); Mean Corpuscular Hgb Conc 34.4 g/dL (31-36); Mean Corpuscular Volume 84.8 fL (80-97); Mean Platelet Volume 8.4 fL (7.5-11.2); Platelet Count 147 10^3/uL (150-450); Red Blood Count 2.44 10^6/uL (4.06-5.63); White Blood Count 7.5 10^3/uL (3.6-10.2)
[2024-02-17 05:56] LABS: Hematocrit 18.2 % (38-53); Hemoglobin 6.3 g/dL (13.2-16.3); Mean Corpuscular Hemoglobin 29.1 pg (27-33); Mean Corpuscular Hgb Conc 34.4 g/dL (31-36); Mean Corpuscular Volume 84.6 fL (80-97); Mean Platelet Volume 8.4 fL (7.5-11.2); Platelet Count 123 10^3/uL (150-450); Red Blood Count 2.15 10^6/uL (4.06-5.63); Red Cell Distribution Width 16.7 % (12-17); White Blood Count 5.2 10^3/uL (3.6-10.2)
[2024-02-17 08:04] LABS: Albumin/Globulin Ratio 1.4 (1-3); Calcium 6.9 mg/dL (8.6-10.3); Creatinine, Serum 0.67 mg/dL (0.67-1.17); Globulin 1.4 g/dL (2-4); Magnesium 1.6 mg/dL (1.9-2.7); Potassium 3.4 mmol/L (3.5-5.0); Total Bilirubin 0.3 mg/dL (0.2-1.0); Total Protein 3.4 g/dL (6.4-8.9); eGFR CKD-EPI 104.3 (>60)
[2024-02-17] MEDS: fentaNYL 100 mcg/2 ml 50 MCG/ML VIAL IV SLOW PU ONE (08:27)
[2024-02-17] MEDS: KCL 20 MEQ/100 ML IVPREMIX 20 MEQ/100 ML BAG IV SCH (10:12)
[2024-02-17] MEDS ORDERED: cefTRIAXone 1 gm/50 mL D5W 1 GM/50 ML BAG IV SCH (10:15)
[2024-02-17] MEDS: Calcium Gluconate 3 GM in NS 0.9% 250 ml 250 ML IV ONE (10:16)
[2024-02-17] MEDS: Magnesium Sulfate 2 gm BAG 2 GM/50 ML BAG IVPB ONE (13:08)
[2024-02-17] MEDS: Magnesium Sulfate IV 1GM/100ML 1 GM/100 ML BAG IV ONE (14:13)
[2024-02-17 15:03] LABS: Hematocrit 22.4 % (38-53); Hemoglobin 7.8 g/dL (13.2-16.3)
[2024-02-17 22:51] LABS: Hemoglobin 7.6 g/dL (13.2-16.3)
[2024-02-18 05:45] LABS: Hematocrit 20.1 % (38-53); Mean Corpuscular Hemoglobin 30.3 pg (27-33); Mean Corpuscular Hgb Conc 34.9 g/dL (31-36); Mean Corpuscular Volume 86.7 fL (80-97); Mean Platelet Volume 8.6 fL (7.5-11.2); Platelet Count 113 10^3/uL (150-450); Red Blood Count 2.32 10^6/uL (4.06-5.63); Red Cell Distribution Width 15.4 % (12-17); White Blood Count 3.9 10^3/uL (3.6-10.2)
[2024-02-18 06:10] LABS: ABS Eosinophils 0.1 10^3/uL (0.0-0.5); ABS Monocytes 0.5 10^3/uL (0.0-1.1); ABS Neutrophils 2.3 10^3/uL (1.5-7.6); ABS Nucleated RBC 0.01 10^3/ul; Nucleated Red Blood Cells % 0.2 %/100WBC (0.0-0.8)
[2024-02-18 06:32] LABS: Calcium 7.1 mg/dL (8.6-10.3); Creatinine, Serum 0.65 mg/dL (0.67-1.17); Potassium 3.7 mmol/L (3.5-5.0); eGFR CKD-EPI 105.2 (>60)
[2024-02-18 06:44] LABS: Activated Partial Thrombo Time 24.1 seconds (26.0-38.0); INR 1.08 (0.85-1.14)
[2024-02-18 16:24] LABS: Hematocrit 25.8 % (38-53); Hemoglobin 8.7 g/dL (13.2-16.3)
[2024-02-18 23:38] LABS: Hemoglobin 7.5 g/dL (13.2-16.3)
[2024-02-19 06:17] LABS: Hematocrit 23.4 % (38-53); Hemoglobin 7.5 g/dL (13.2-16.3); Mean Corpuscular Hemoglobin 32.6 pg (27-33); Mean Corpuscular Volume 101.9 fL (80-97); Platelet Count 126 10^3/uL (150-450); Red Blood Count 2.29 10^6/uL (4.06-5.63); Red Cell Distribution Width 17.9 % (12-17); White Blood Count 3.4 10^3/uL (3.6-10.2)
[2024-02-19 07:29] LABS: ABS Eosinophils 0.1 10^3/uL (0.0-0.5); ABS Lymphocytes 1.1 10^3/uL (1.0-4.8); ABS Monocytes 0.4 10^3/uL (0.0-1.1); ABS Neutrophils 1.8 10^3/uL (1.5-7.6); ABS Nucleated RBC 0.01 10^3/ul; Eosinophil % 2.9 %; Lymphocyte % 32.1 %; Macrocytosis 1+; Nucleated Red Blood Cells % 0.3 %/100WBC (0.0-0.8); Polychromasia 1+
[2024-02-19 10:27] LABS: Hematocrit 25.5 % (38-53); Hemoglobin 8.7 g/dL (13.2-16.3)
[2024-02-19 11:06] LABS: Albumin 2.8 g/dL (3.2-5.2); Albumin/Globulin Ratio 1.5 (1-3); Calcium 7.7 mg/dL (8.6-10.3); Creatinine, Serum 0.68 mg/dL (0.67-1.17); Globulin 1.9 g/dL (2-4); Phosphorus 3.7 mg/dL (2.5-5.0); Potassium 3.7 mmol/L (3.5-5.0); Total Bilirubin 0.4 mg/dL (0.2-1.0); Total Protein 4.7 g/dL (6.4-8.9); eGFR CKD-EPI 103.8 (>60)
[2024-02-19] MEDS: PEG 3000 GI LAVAGE 1 GALLON PO ONE (14:22)
[2024-02-20 06:53] LABS: ABS Eosinophils 0.1 10^3/uL (0.0-0.5); ABS Lymphocytes 1.3 10^3/uL (1.0-4.8); ABS Monocytes 0.4 10^3/uL (0.0-1.1); ABS Neutrophils 1.9 10^3/uL (1.5-7.6); Eosinophil % 2.6 %; Hematocrit 22.9 % (38-53); Hemoglobin 7.7 g/dL (13.2-16.3); Lymphocyte % 34.9 %; Mean Corpuscular Hemoglobin 32.4 pg (27-33); Mean Corpuscular Hgb Conc 33.6 g/dL (31-36); Mean Corpuscular Volume 96.4 fL (80-97); Mean Platelet Volume 8.7 fL (7.5-11.2); Nucleated Red Blood Cells % 0.1 %/100WBC (0.0-0.8); Platelet Count 145 10^3/uL (150-450); Red Blood Count 2.38 10^6/uL (4.06-5.63); Red Cell Distribution Width 17.8 % (12-17); White Blood Count 3.6 10^3/uL (3.6-10.2)
[2024-02-20 07:39] LABS: Anion Gap 4 mmol/L (2-16); Blood Urea Nitrogen 12 mg/dL (6-24); CO2 Carbon Dioxide 23 mmol/L (22-32); Calcium 7.9 mg/dL (8.6-10.3); Chloride 105 mmol/L (101-111); Creatinine, Serum 0.82 mg/dL (0.67-1.17); Sodium 132 mmol/L (135-145); eGFR CKD-EPI 98.1 (>60)
[2024-02-20 07:48] LABS: Glucose 1204 mg/dL (70-100)
[2024-02-20] MEDS ORDERED: Midazolam 10 mg/10 ml VIAL 1 mg/ml 10 ml VIAL (10 mg) ONE (17:22)
[2024-02-20] MEDS ORDERED: fentaNYL 100 mcg/2 ml 50 MCG/ML VIAL ONE (17:22)
[2024-02-20] MEDS: TPN CENT\\PICC SCH (22:11)
[2024-02-20] MEDS: CALCIUM GLUCONATE TPN CENT\\PICC SCH (22:11)
[2024-02-20] MEDS: SODIUM CHLORIDE CENT\\PICC SCH (22:11)
[2024-02-20] MEDS: [UNRECOGNIZED DRUG - OTHER] CENT\\PICC SCH (22:11)
[2024-02-21 08:00] LABS: Calcium 8.1 mg/dL (8.6-10.3); Creatinine, Serum 0.77 mg/dL (0.67-1.17); Phosphorus 4.6 mg/dL (2.5-5.0); Potassium 3.6 mmol/L (3.5-5.0)
[2024-02-21 11:22] LABS: ABS Lymphocytes 0.8 10^3/uL (1.0-4.8); ABS Monocytes 0.3 10^3/uL (0.0-1.1); ABS Neutrophils 2.8 10^3/uL (1.5-7.6); Eosinophil % 1.2 %; Hematocrit 27.5 % (38-53); Hemoglobin 9.3 g/dL (13.2-16.3); Lymphocyte % 20.8 %; Mean Corpuscular Hemoglobin 30.2 pg (27-33); Mean Corpuscular Hgb Conc 33.7 g/dL (31-36); Mean Corpuscular Volume 89.6 fL (80-97); Mean Platelet Volume 8.3 fL (7.5-11.2); Nucleated Red Blood Cells % 0.1 %/100WBC (0.0-0.8); Platelet Count 195 10^3/uL (150-450); Red Blood Count 3.07 10^6/uL (4.06-5.63); Red Cell Distribution Width 17.4 % (12-17)
[2024-02-21] MEDS: SODIUM CHLORIDE CENT\\PICC SCH (17:37)
[2024-02-21] MEDS: CALCIUM GLUCONATE TPN CENT\\PICC SCH (17:37)
[2024-02-21] MEDS: [UNRECOGNIZED DRUG - OTHER] CENT\\PICC SCH (17:37)
[2024-02-21] MEDS: TPN CENT\\PICC SCH (17:37)
[2024-02-22 07:36] LABS: Hematocrit 25.2 % (38-53); Hemoglobin 8.5 g/dL (13.2-16.3); Mean Corpuscular Hemoglobin 30.3 pg (27-33); Mean Corpuscular Hgb Conc 33.7 g/dL (31-36); Mean Corpuscular Volume 89.7 fL (80-97); Mean Platelet Volume 8.5 fL (7.5-11.2); Platelet Count 161 10^3/uL (150-450); Red Blood Count 2.81 10^6/uL (4.06-5.63); White Blood Count 2.8 10^3/uL (3.6-10.2)
[2024-02-22 07:53] LABS: Albumin 2.8 g/dL (3.2-5.2); Albumin/Globulin Ratio 1.5 (1-3); Calcium 7.9 mg/dL (8.6-10.3); Creatinine, Serum 0.74 mg/dL (0.67-1.17); Globulin 1.9 g/dL (2-4); Potassium 3.7 mmol/L (3.5-5.0); Total Bilirubin 0.4 mg/dL (0.2-1.0); Total Protein 4.7 g/dL (6.4-8.9); eGFR CKD-EPI 101.2 (>60)
[2024-02-22] MEDS ORDERED: Iron Sucrose 20 MG/ML 5 ML VIAL IV PUSH ONE (12:22)
[2024-02-22] MEDS: Iron Sucrose 200 MG in NS 0.9% 100 ml IVPB ONE (14:17)
[2024-02-22] MEDS ORDERED: TPN 24 HR with Dextrose 50% Water 500 ML, Amino Acid Infusion 10% 1,000 ML, Lipid Emuls... CENT\\PICC SCH (17:00)
[2024-02-22 21:47] VITALS: BP 134/94
[2024-02-23 08:30] LABS: Hematocrit 26.7 % (38-53); Hemoglobin 8.9 g/dL (13.2-16.3); Mean Corpuscular Hemoglobin 29.8 pg (27-33); Mean Corpuscular Hgb Conc 33.6 g/dL (31-36); Mean Corpuscular Volume 88.8 fL (80-97); Platelet Count 197 10^3/uL (150-450); Red Cell Distribution Width 15.9 % (12-17); White Blood Count 2.7 10^3/uL (3.6-10.2)
== END 2024-02-23 10:10 | disposition home or self-care (01) | DRG 223 ==
LOC: ED 08:04 → EDHOLD 08:04 → MED 16:00 → SSU 01-27 10:45 → ICU 02-15 01:09 → SSU 02-20 22:57
PROVIDERS: ADMIT Student in an Organized Health Care Education/Training Program; ATTEND Surgery